=== PATIENT | female | born 1960 | race Caucasian/White ===

== ENCOUNTER 2016-08-17 22:10 | Inpatient (IN) | payer SELFPAY ==
[~2016-08-17] VITALS: Ht 160 cm; Wt 95.0 kg
[2016-08-17 22:55] LABS: BASOPHILS 0.4 % (0.0-2.0); EOSINOPHILS 1.9 % (0-7); HEMATOCRIT 29.9 % (36.0-48.0); IMMATURE GRANULOCYTES 4.1 % (0-5); LYMPHOCYTES 11.3 % (15-50); MCH 34.1 pg (26.0-34.0); MCHC 33.4 g/dL (31.0-37.0); MEAN PLATELET VOLUME 10.3 fL (7.4-10.4); NEUTROPHILS 67.3 % (40-80); PLATELET COUNT 317 10x3/uL (130-400); RBC 2.93 10x6/uL (4.00-5.40); RDW 16.2 % (11.5-14.5); WBC 13.7 10x3/uL (4.8-10.8)
[2016-08-17 23:30] LABS: ALBUMIN 2.2 g/dL (3.4-5.0); ALT (SGPT) 58 U/L (10-68); AMYLASE - SERUM 49 U/L (25-115); CALC OSMOLALITY 258 mosm/kg (275-300); CALCIUM 8.6 mg/dL (8.5-10.1); CARBON DIOXIDE 28.4 mmol/L (21.0-32.0); CHLORIDE - SERUM 87 mmol/L (98-107); CREATINE KINASE 21 UL (21-215); GLUCOSE 91 mg/dL (74-106); LIPASE 155 U/L (73-393); SODIUM 129 mmol/L (136-145); UREA NITROGEN 12 mg/dL (7-18); eGFR NON AFRICAN AMERICAN 60 mL/min (90-120)
[2016-08-17 23:33] LABS: ALKALINE PHOSPHATASE 411 U/L (46-116); POTASSIUM - SERUM 2.7 mmol/L (3.5-5.1); PROTEIN - SERUM 6.6 g/dL (6.4-8.2); TROPONIN-I < 0.017 ng/mL (0.000-0.060)
[2016-08-18 00:18] LABS: APPEARANCE TURBID (CLEAR); COLOR AMBER (YELLOW); GLUCOSE NEGATIVE (NEGATIVE); KETONE NEGATIVE (NEGATIVE); LEUKOCYTE ESTERASE 1+ (NEGATIVE); NITRITE NEGATIVE (NEGATIVE); PROTEIN 1+ mg/dL (NEGATIVE); SPECIFIC GRAVITY 1.015 (1.005-1.020)
[2016-08-18 00:24] LABS: BACTERIA MANY /hpf (NONE SEEN); HYALINE CAST OCC /lpf (NONE SEEN); MUCUS <1+ /lpf (NONE SEEN); WHITE CELLS - URINE >50 /hpf (0-5)
[2016-08-18 00:25] LABS: AMORPHOUS SEDIMENT <1+ /lpf (NONE SEEN)
[2016-08-18 00:26] LABS: BILIRUBIN 3+ (NEGATIVE)
[2016-08-18 01:55] LABS: BILIRUBIN - DIRECT 35.48 mg/dL (0.00-0.30)
[2016-08-18 03:00] LABS: BILIRUBIN - INDIRECT 8.82 mg/dL (0.00-1.00)
[2016-08-18 06:28] VITALS: BP 107/58
--- NOTE | 2016-08-18 06:32 | NUR ---
received from er, iv-rac, bed is low, srx2, family at bed side,
[2016-08-18 07:03] VITALS: BP 107/58; BMI 28.5
[2016-08-18 08:00] VITALS: BP 96/52
--- NOTE | 2016-08-18 08:30 | NUR ---
LAYING IN BED WITH EYES CLOSED. CALL LIGHT WITHIN REACH AND BED IN LOW POSITON.
--- NOTE | 2016-08-18 10:30 | NUR ---
PATIENT DOWN TO US FOR PELVIC AND TRANSVAGINAL ULTRASOUND. FAMILY AT BEDSIDE.
[2016-08-18 11:46] VITALS: BP 103/63
--- NOTE | 2016-08-18 14:20 | NUR ---
MEDS ADMINISTERED WITHOUT DIFFICULTY PER ORDERS.
[2016-08-18 16:00] VITALS: BP 103/61
--- NOTE | 2016-08-18 17:00 | NUR ---
MED ADMINISTERED WITHOUT DIFFICULTY PER ORDERS. INFORMED PATIENT WILL NOT BE ABLE TO EAT OR DRINK AFTER MIDNIGHT DUE TO SCHEDULED US OF ABDOMEN.
[2016-08-18 20:00] VITALS: BP 109/61
--- NOTE | 2016-08-18 20:20 | NUR ---
RESUMED CARE OF PT, EV-GIT-SA-125, WILL BE NPO AFTER MIDNIGHT, FAMILY AT BEDSIDE, WILL CONTINUE TO MONITOR
[2016-08-19] VITALS: BP 109/61
--- NOTE | 2016-08-19 02:18 | NUR ---
LYING IN BED, CALL LIGHT IN REACH. WILL CONTINUE WITH PLAN OF CARE.
[2016-08-19 04:00] VITALS: BP 103/56
[2016-08-19 05:39] LABS: BASOPHILS 0.4 % (0.0-2.0); EOSINOPHILS 3.6 % (0-7); HEMATOCRIT 25.1 % (36.0-48.0); HEMOGLOBIN 8.3 g/dL (12-16); IMMATURE GRANULOCYTES 6.3 % (0-5); MCH 33.9 pg (26.0-34.0); MCHC 33.1 g/dL (31.0-37.0); MCV 102.4 fL (80.0-100.0); MEAN PLATELET VOLUME 10.2 fL (7.4-10.4); MONOCYTES 8.2 % (2-11); NEUTROPHILS 73.5 % (40-80); PLATELET COUNT 319 10x3/uL (130-400); RBC 2.45 10x6/uL (4.00-5.40); RDW 16.8 % (11.5-14.5)
[2016-08-19 05:46] LABS: WBC 9.1 10x3/uL (4.8-10.8)
[2016-08-19 05:51] LABS: INR 1.05 (0.85-1.17); PROTIME 13.5 SECONDS (11.6-15.0)
[2016-08-19 06:29] LABS: ALBUMIN 1.7 g/dL (3.4-5.0); CALCIUM 8.2 mg/dL (8.5-10.1); CHOL - HDL RATIO 24.4 ratio (2.3-4.1); LDL-HDL RATIO 10.4 ratio (1.5-3.5); PRE-ALBUMIN 10.1 mg/dL (18.0-35.7)
[2016-08-19 06:40] LABS: ANION GAP 10.5 mmol/L (8-16); BILIRUBIN - TOTAL 36.4 mg/dL (0.2-1.3); CREATININE - SERUM 1.3 mg/dL (0.6-1.3); PROTEIN - SERUM 5.2 g/dL (6.4-8.2)
[2016-08-19 06:41] LABS: POTASSIUM - SERUM 2.5 mmol/L (3.5-5.1)
--- NOTE | 2016-08-19 07:39 | NUR ---
PT IS RESTING IN BED WITH EYES OPEN. ALERT AND ORIENTED X 3. DENIES ANY DISCOMFORT AT THIS TIME. ULTRASOUND JUST LEAVING ROOM. IV INFUSING TO RIGHT AC. NO REDNESS OR EDEMA NOTED AT THE INSERTION SITE. SR'S ARE UP X 2 IN BED. CALL LIGHT AND BEDSIDE TABLE ARE WITHIN EASY REACH.
[2016-08-19 09:30] VITALS: BP 117/65
--- NOTE | 2016-08-19 09:50 | NUR ---
RESTS IN BED. FAMILY MEMBER AT BS. CALL LIGHT IN REACH. WILL CONT. PLAN OF CARE.
[2016-08-19 11:07] VITALS: Ht 160 cm; Wt 95.0 kg
--- NOTE | 2016-08-19 11:55 | NUR ---
PT IS RESTING IN BED WITH EYES OPEN. NO NEEDS VOICED.
[2016-08-19 12:00] VITALS: BP 106/64
--- NOTE | 2016-08-19 14:31 | NUR ---
PATIENT STATES SHE IS INTERESTED IN GETTING HELP FOR HER ALCOHOL/DRUG ABUSE. PATIENT IS NOT EMPLOYED AND DOES NOT HAVE ANY INSURANCE. SHE STATES SHE HAS GONE TO AA IN THE PAST BUT STATES SHE DOES NOT HAVE A SPONSOR. PATIENT WAS GIVEN LIST OF ALCOHOL/DRUG REHAB FACILITIES AND TOLD TO CALL [facility] FOR A PHONE INTERVIEW AND SEE IF THEY CAN ASSIST HER SINCE SHE DOES NOT HAVE INSURACE. PATIENT STATES UNDERSTANDING THAT SHE WILL NEED TO MAKE CALL FOR HER TO BE CONSIDERED.
--- NOTE | 2016-08-19 14:46 | NUR ---
PT IS RESTING QUIETLY IN BED WITH EYES CLOSED. NO DISTRESS NOTED.
--- NOTE | 2016-08-19 15:40 | NUR ---
PATIENT IS INTERESTED IN ALCOHOL REHAB. SHE IS UNEMPLOYED AND DOES NOT HAVE INSURANCE. PATIENT WAS GIVEN INFORMATION AND RESOURCES FOR ALCOHOL REHAB. PATIENT UNDERSTANDS THAT SHE WILL NEED TO MAKE THE CALL TO [facility] TO BE CONSIDERED. CM TO FOLLOW.
--- NOTE | 2016-08-19 17:36 | NUR ---
PT IS FEEDING SELF SUPPER IN BED. VERY HAPPY, EVEN FOR A CL DIET.
[2016-08-19 21:18] VITALS: BP 154/87
--- NOTE | 2016-08-20 00:16 | NUR ---
ASSESSED AT THE BEGINNING OF THE SHIFT. PT IS ALERT AND ORIENTED, ABLE TO VERBALIZE NEEDS. HER IS STAYING WITH HER AND IS ALSO ASSISTING HER UP TO THE BEDSIDE COMMODE. WE ARE GIVING HER K+ RIDERS FOR A LOW POTASSIUM AND AT THIS TIME SHE IS ON #5. SHE RECEIVED ATIVAN REQUESTED FOR SLEEP AND IS TRYING TO REST AT THIS TIME. THE BED IS LOW, RAILS UP X'S 2 WITH THE CALL LIGHT AT HAND.
[2016-08-20 00:23] VITALS: BP 118/59
[2016-08-20 04:25] VITALS: BP 99/52
[2016-08-20 07:00] VITALS: BP 98/60
--- NOTE | 2016-08-20 07:21 | NUR ---
0710- AM ROUNDS. PT HAS A RIGHT AC IV WITH NS AT 125CC/HR. PT IS SLEEPING WITH BREATHS EVEN AND NONLABORED ON ROOM AIR. WILL CONTINUE TO MONITOR.
[2016-08-20 08:16] LABS: ALPHA FETOPROTEIN -(TUMOR MRK) 4.7 ng/mL (0.0-8.3); CEA 5.3 ng/mL (0.0-4.7)
[2016-08-20 10:13] LABS: HEPATITIS C ANTIBODY <0.1 (0.0-0.9)
[2016-08-20 10:27] LABS: BASOPHILS 0.5 % (0.0-2.0); EOSINOPHILS 1.4 % (0-7); HEMATOCRIT 24.5 % (36.0-48.0); HEMOGLOBIN 8.3 g/dL (12-16); IMMATURE GRANULOCYTES 4.2 % (0-5); LYMPHOCYTES 7.3 % (15-50); MCH 35.5 pg (26.0-34.0); MCHC 33.9 g/dL (31.0-37.0); MEAN PLATELET VOLUME 10.6 fL (7.4-10.4); MONOCYTES 5.1 % (2-11); NEUTROPHILS 81.5 % (40-80); PLATELET COUNT 320 10x3/uL (130-400); RBC 2.34 10x6/uL (4.00-5.40); RDW 17.6 % (11.5-14.5)
[2016-08-20 10:28] LABS: MCV 104.7 fL (80.0-100.0); WBC 12.3 10x3/uL (4.8-10.8)
[2016-08-20 11:43] LABS: ALBUMIN 1.6 g/dL (3.4-5.0); CALCIUM 7.5 mg/dL (8.5-10.1); CARBON DIOXIDE 20.5 mmol/L (21.0-32.0); CREATININE - SERUM 1.4 mg/dL (0.6-1.3); INR 1.1 (0.85-1.17); MAGNESIUM - SERUM 1.5 mg/dL (1.8-2.4); PHOSPHOROUS 2.4 mg/dL (2.5-4.9); PROTIME 14.1 SECONDS (11.6-15.0)
[2016-08-20 11:47] LABS: ANION GAP 15.6 mmol/L (8-16); BILIRUBIN - TOTAL 34.96 mg/dL (0.2-1.3); POTASSIUM - SERUM 3.1 mmol/L (3.5-5.1); PROTEIN - SERUM 4.8 g/dL (6.4-8.2)
[2016-08-20 12:00] VITALS: BP 91/42
[2016-08-20 16:00] VITALS: BP 110/61
[2016-08-20 20:47] VITALS: BP 112/63
--- NOTE | 2016-08-20 21:11 | NUR ---
PT RECEIVED IN BED WITH EYES CLOSED AND CHEST RISING. NO SIGN/SYMPTOMS OF DISTRESS NOTED. EASILY AROUSED TO VERBAL STIMULI. RIGHT AC IV PATENT. RECEIVED MEDICATIONS PER MAR WITHOUT DIFFICULTY. PHOSPHO GIVEN. CALL LIGHT IN REACH.
[2016-08-21 00:24] VITALS: BP 118/64
[2016-08-21 04:39] VITALS: BP 122/68
--- NOTE | 2016-08-21 05:41 | NUR ---
PT IN BED WITH EYES CLOSED AND CHEST RISING. NO SIGN/SYMPTOMS OF DISTRESS NOTED. EASILY AROUSED TO VERBAL STIMULI. CALL LIGHT IN REACH.
[2016-08-21 05:52] LABS: BASOPHILS 0.6 % (0.0-2.0); EOSINOPHILS 2.7 % (0-7); HEMATOCRIT 24.2 % (36.0-48.0); HEMOGLOBIN 7.8 g/dL (12-16); IMMATURE GRANULOCYTES 4.6 % (0-5); MCH 33.9 pg (26.0-34.0); MCHC 32.2 g/dL (31.0-37.0); MCV 105.2 fL (80.0-100.0); MEAN PLATELET VOLUME 10.5 fL (7.4-10.4); MONOCYTES 4.7 % (2-11); NEUTROPHILS 81.4 % (40-80); PLATELET COUNT 368 10x3/uL (130-400); RDW 17.9 % (11.5-14.5); WBC 12.4 10x3/uL (4.8-10.8)
[2016-08-21 06:02] LABS: INR 1.13 (0.85-1.17); PROTIME 14.4 SECONDS (11.6-15.0)
[2016-08-21 06:23] LABS: ALBUMIN 1.5 g/dL (3.4-5.0); ANION GAP 15.5 mmol/L (8-16); CALCIUM 7.7 mg/dL (8.5-10.1); CARBON DIOXIDE 20.3 mmol/L (21.0-32.0); CREATININE - SERUM 1.4 mg/dL (0.6-1.3); MAGNESIUM - SERUM 1.4 mg/dL (1.8-2.4); PHOSPHOROUS 2.6 mg/dL (2.5-4.9); POTASSIUM - SERUM 3.8 mmol/L (3.5-5.1)
[2016-08-21 06:34] LABS: BILIRUBIN - TOTAL 31.61 mg/dL (0.2-1.3)
--- NOTE | 2016-08-21 07:29 | NUR ---
AM ROUNDS- PT APPEARS TO BE SLEEPING WITH RESPIRATIONS EQUAL AND NONLABORED.
[2016-08-21 13:01] VITALS: BP 130/74
--- NOTE | 2016-08-21 15:06 | NUR ---
FIRST OF TWO BLOOD TRASFUSSIONS STARTED. INFUSSING AT 125CC/HR TO RIGHT AC. S/S POSSIBLE REACTION EXPLAINED TO PT SHE HAS NEVER RECIEVED BLOOD BEFORE.
[2016-08-21 16:39] VITALS: BP 141/83
--- NOTE | 2016-08-21 17:27 | NUR ---
FIRST UNIT OF BLOOD TRANSFUSSED WITHOUT ANY NOTED COMPLICATIONS. LASIX WILL BE GIVEN IN 1 HR WHEN VITAL SIGNS ARE CHECKED POST TRANSFUSSION.
--- NOTE | 2016-08-21 18:58 | NUR ---
2ND UNTIT OF BLOOD STARTED. TRANFUSION AT 125 IN RIGHT AC.
[2016-08-21 20:00] VITALS: BP 139/79
--- NOTE | 2016-08-21 20:03 | NUR ---
PM ROUNDS- PT CURRENTLY IN THE BED RECIEVING 2ND UNIT OF BLOOD. VITALS ARE STABLE. WILL CONTINUE TO MONITOR.
--- NOTE | 2016-08-22 00:16 | NUR ---
REMIND PT SHE WAS NOW NPO FOR CT ABDOMEN/PELVIS WITH CONTRAST
--- NOTE | 2016-08-22 01:04 | NUR ---
PT SLEEPING, BED IS LOW, SRX2, CALL LIGHT IN REACH, WILL CONTINUE TO MONITOR
[2016-08-22 04:00] VITALS: BP 139/73
[2016-08-22 05:44] LABS: BASOPHILS 0.5 % (0.0-2.0); EOSINOPHILS 2.7 % (0-7); LYMPHOCYTES 7.2 % (15-50); MCH 32.9 pg (26.0-34.0); MCHC 33.3 g/dL (31.0-37.0); MEAN PLATELET VOLUME 10.6 fL (7.4-10.4); MONOCYTES 4.2 % (2-11); NEUTROPHILS 81.4 % (40-80); PLATELET COUNT 305 10x3/uL (130-400); WBC 13.2 10x3/uL (4.8-10.8)
[2016-08-22 05:53] LABS: INR 1.05 (0.85-1.17); PROTIME 13.5 SECONDS (11.6-15.0)
[2016-08-22 05:57] LABS: MCV 98.7 fL (80.0-100.0); RBC 3.04 10x6/uL (4.00-5.40)
[2016-08-22 06:12] LABS: ALBUMIN 1.5 g/dL (3.4-5.0); ANION GAP 15.1 mmol/L (8-16); CALCIUM 8.3 mg/dL (8.5-10.1); CARBON DIOXIDE 22.3 mmol/L (21.0-32.0); CREATININE - SERUM 1.4 mg/dL (0.6-1.3); MAGNESIUM - SERUM 1.4 mg/dL (1.8-2.4); PHOSPHOROUS 3.2 mg/dL (2.5-4.9); POTASSIUM - SERUM 3.4 mmol/L (3.5-5.1)
[2016-08-22 06:13] LABS: BILIRUBIN - TOTAL 32.69 mg/dL (0.2-1.3); PROTEIN - SERUM 5.1 g/dL (6.4-8.2)
--- NOTE | 2016-08-22 07:33 | NUR ---
RECEIVED REPORT. WILL CONTINUE PLAN OF CARE. NO OTHER NEEDS AT THIS TIME. WILL CONTNUE TO ABDOUL.
[2016-08-22 08:15] VITALS: BP 130/74
[2016-08-22 12:11] LABS: ANA REFLEX - DIRECT Negative (Negative)
[2016-08-22 12:24] VITALS: BP 129/73
--- NOTE | 2016-08-22 13:45 | NUR ---
PT IS ALERT. ASSESSMENT DONE PER FLOWSHEET. NO OTHER NEEDS AT THIS TIME. WILL CONTINUE TO MONITOR.
[2016-08-22 16:05] VITALS: BP 111/68
--- NOTE | 2016-08-22 19:15 | NUR ---
RECEIVED REPORT, IV-RAC-NS @125, ASKING FOR ATIVAN, BED IS LOW, SRX2, CALL LIGHT IN REACH, WILL CONTINUE TO MONITOR
--- NOTE | 2016-08-22 19:35 | NUR ---
GAVE ATIVAN PER ORDER, WILL MONITOR
[2016-08-22 20:00] VITALS: BP 129/75
[2016-08-23] VITALS: BP 123/59
--- NOTE | 2016-08-23 00:53 | NUR ---
AUTOMOBILES SALESPERSON AT BEDSIDE, NEEDS ADDRESSED AT THIS TIME. CALL LIGHT IN REACH. WILL CONT TO MONITOR.
[2016-08-23 04:00] VITALS: BP 135/58
[2016-08-23 05:02] LABS: BASOPHILS 0.3 % (0.0-2.0); EOSINOPHILS 2.5 % (0-7); HEMATOCRIT 29.4 % (36.0-48.0); IMMATURE GRANULOCYTES 2.7 % (0-5); LYMPHOCYTES 6.7 % (15-50); MCH 33.3 pg (26.0-34.0); MEAN PLATELET VOLUME 10.4 fL (7.4-10.4); MONOCYTES 4.3 % (2-11); NEUTROPHILS 83.5 % (40-80); PLATELET COUNT 244 10x3/uL (130-400); RDW 21.6 % (11.5-14.5); WBC 11.4 10x3/uL (4.8-10.8)
[2016-08-23 05:11] LABS: INR 1.11 (0.85-1.17); PROTIME 14.2 SECONDS (11.6-15.0)
--- NOTE | 2016-08-23 05:45 | NUR ---
PT IS ALERT. NO SS OF DISTRESS AT THIS TIME. WILL CONTINUE TO MONITOR. NO OTHER NEEDS
[2016-08-23 05:58] LABS: ALBUMIN 1.5 g/dL (3.4-5.0); ANION GAP 14.9 mmol/L (8-16); CALCIUM 8.1 mg/dL (8.5-10.1); CARBON DIOXIDE 20.2 mmol/L (21.0-32.0); CREATININE - SERUM 1.4 mg/dL (0.6-1.3); POTASSIUM - SERUM 3.1 mmol/L (3.5-5.1)
[2016-08-23 06:00] LABS: BILIRUBIN - TOTAL 32.8 mg/dL (0.2-1.3); PROTEIN - SERUM 5.1 g/dL (6.4-8.2)
--- NOTE | 2016-08-23 06:57 | NUR ---
PT IS ALERT. ASSESSMENT DONE PER FLOWSHEET. NO OTHER NEEDS AT THIS TIME. WILL CONTINUE TO MONITOR.
[2016-08-23 07:54] VITALS: BP 120/74
[2016-08-23 11:38] VITALS: BP 132/76
[2016-08-23 13:17] LABS: MITOCHONDRIAL ANTIBODY 6.7 Units (0.0-20.0)
[2016-08-23 16:18] VITALS: BP 142/84
--- NOTE | 2016-08-23 19:15 | NUR ---
PT RECEIVED LYING IN BED RESTING QUIETLY AT THIS TIME. AAOX3. RATES PAIN 7/10 AT THIS TIME. REQUESTS PAIN MEDICATION. DENIES ANY OTHER NEEDS. BED LOW. PHONE AND CALL LIGHT IN REACH. SRX2.
[2016-08-23 20:00] VITALS: BP 142/81
--- NOTE | 2016-08-23 21:05 | NUR ---
PM MEDS GIVEN AT THIS TIME. PT REQUESTS ATIVAN AT THIS TIME TO HELP HER FALL ASLEEP. DENIES OTHER NEEDS. BED LOW. PHONE AND CALL LIGHT IN REACH. SRX2.
--- NOTE | 2016-08-23 22:53 | NUR ---
PT REQUESTS ATIVAN AT THIS TIME. ATIVAN ADMINISTERED IVP PER ORDERS. PT DENIES OTHER NEEDS. BED LOW. PHONE AND CALL LIGHT IN REACH. SRX2.
[2016-08-24] VITALS: BP 110/63
--- NOTE | 2016-08-24 00:29 | NUR ---
PT RESTING QUIETLY AT THIS TIME WITH EYES CLOSED. RESPIRATIONS EVEN, NON-LABORED. NO ACUTE DISTRESS NOTED AT THIS TIME. BED LOW. PHONE AND CALL LIGHT IN REACH. SRX2.
--- NOTE | 2016-08-24 02:03 | NUR ---
PT RESTING QUIETLY AT THIS TIME WITH EYES CLOSED. AROUSED EASILY. FLAGYL IVPB INITIATED AT THIS TIME. PT BACK RESTING QUIETLY WITH EYES CLOSED. RESPIRATIONS EVEN, NON-LABORED. NO ACUTE DISTRESS NOTED AT THIS TIME. BED LOW. PHONE AND CALL LIGHT IN REACH. SRX2.
[2016-08-24 04:00] VITALS: BP 112/62
--- NOTE | 2016-08-24 04:20 | NUR ---
PT RESTING QUIETLY AT THIS TIME. AROUSED EASILY. RETAPED IV TUBING AT THIS TIME. PT DENIES OTHER NEEDS. BED LOW. PHONE AND CALL LIGHT IN REACH. SRX2.
[2016-08-24 04:42] LABS: BASOPHILS 0.4 % (0.0-2.0); EOSINOPHILS 2.3 % (0-7); HEMATOCRIT 27.2 % (36.0-48.0); HEMOGLOBIN 9.2 g/dL (12-16); IMMATURE GRANULOCYTES 2.6 % (0-5); LYMPHOCYTES 5.9 % (15-50); MCH 32.9 pg (26.0-34.0); MCHC 33.8 g/dL (31.0-37.0); MCV 97.1 fL (80.0-100.0); MEAN PLATELET VOLUME 10.8 fL (7.4-10.4); MONOCYTES 4.8 % (2-11); WBC 9.7 10x3/uL (4.8-10.8)
[2016-08-24 05:03] LABS: PLATELET COUNT 188 10x3/uL (130-400)
[2016-08-24 06:06] LABS: ALBUMIN 1.3 g/dL (3.4-5.0); CALCIUM 7.9 mg/dL (8.5-10.1); CREATININE - SERUM 1.3 mg/dL (0.6-1.3)
[2016-08-24 06:09] LABS: BILIRUBIN - TOTAL 29.2 mg/dL (0.2-1.3); PROTEIN - SERUM 4.5 g/dL (6.4-8.2)
[2016-08-24 08:00] VITALS: BP 112/64
--- NOTE | 2016-08-24 11:01 | NUR ---
PT IS ALERT. ASSESSMENT DONE PER FLOWSHEET. NO OTHER NEEDS AT THIS TIME. WILL CONTINUE TO MONITOR.
[2016-08-24 12:00] VITALS: BP 129/71
--- NOTE | 2016-08-24 13:59 | NUR ---
Nutrition follow-up: Diet: Full liquids PO intake 100% of meals at this time Labs reviewed Wt: 207# RDN following.
--- NOTE | 2016-08-24 15:32 | NUR ---
Patient Name: DESIREE CORBIN Encounter No: [id number] : 1960 Primary Insurance: UNINSURED DISCOUNT PLAN Anticipated DC Date: Planned Disposition: Home DCP follow-up note: * Is the patient Alert and Oriented? Yes 0 * How many steps to enter\exit or inside your home? NONE 0 * PCP [facility] 0 * Pharmacy [facility] 0 * Preadmission Environment Home with Family 0 * ADLs Independent 0 * Equipment None 0 * Other Equipment NO MEDICAL EQUIPMENT PROVIDER PREFERENCE 0 * List name and contact numbers for known caregivers / representatives who currently or will assist patient after discharge: AHMET CORBIN, DAUGHTER, 0 * Community resources currently utilized None 0 * Please name any agencies selected above. NONE 0 * Additional services required to return to the preadmission environment? No 0 * Can the patient safely return to the preadmission environment? Yes 0 * Has this patient been hospitalized within the prior 30 days at any hospital? No 0 CHART REVIEW COMPLETED, PT PREVIOUSLY REFERRED TO [facility] FOR SUBSTANCE ABUSE TREATMENT BY TRISTAN MANDEL. DALIA MET WITH PT IN ROOM TO DISCUSS DISCHARGE PLANNING AND NEEDS. PT REPORTS LIVING AT HOME INDEPENDENTLY WITH HER BOYFRIEND. PT HAS NO MEDICAL EQUIPMENT AND NO OUTSIDE SERVICES ASSISTING IN THE HOME. CM DISCUSSED AVAILABILITY OF HOME HEALTH, REHAB SERVICES AND MEDICAL EQUIPMENT. PT DENIES DISCHARGE NEEDS, REPORTS HER SIGNIFICANT OTHER WILL PICK HER UP FOR DISCHARGE HOME. Dung Vazquez, CASE MANAGEMENT
[2016-08-24 17:21] VITALS: BP 128/66
--- NOTE | 2016-08-24 17:43 | NUR ---
PT IS ALERT. NO SS OF DISTRESS AT THIS TIME. WILL CONTINUE TO MONITOR.
--- NOTE | 2016-08-24 19:30 | NUR ---
PT AWAKE, ALERT, ORIENTED, DENIES ANY ACUTE NEEDS AT THIS TIME. PT DID EAT 100% OF HER MEAL TRAY FOR SUPPER. IV OUT, WILL RESITE. CONTINUE TO MONITOR CLOSELY.
[2016-08-24 20:00] VITALS: BP 113/66
[2016-08-25] VITALS: BP 114/63
[2016-08-25 04:00] VITALS: BP 105/63
[2016-08-25 05:52] LABS: ANION GAP 15.6 mmol/L (8-16); CALCIUM 7.9 mg/dL (8.5-10.1); CARBON DIOXIDE 20.7 mmol/L (21.0-32.0); CREATININE - SERUM 1.4 mg/dL (0.6-1.3); MAGNESIUM - SERUM 1.1 mg/dL (1.8-2.4); POTASSIUM - SERUM 3.3 mmol/L (3.5-5.1)
--- NOTE | 2016-08-25 06:16 | NUR ---
PT AWAKE, ALERT, ORIENTED, DENIES ANY ACUTE NEEDS. CONTINUE TO MONITOR CLOSELY.
--- NOTE | 2016-08-25 06:19 | NUR ---
PER PT REQUEST, I REMOVED HER RING FROM HER MIDDLE FINGER ON HER RIGHT HAND TO THE EXCESSIVE AMOUNT OF EDEMA IN HER FINGERS. I PLACED HER RING IN HER INSIDE PURSE POCKET WITH PTS ASSISTANCE PER PT REQUEST.
--- NOTE | 2016-08-25 07:32 | NUR ---
RESTS IN BED WITH CALL LIGHT IN REACH. ODIN NEEDS AT THIS TIME. IV PATENT. WILL MONITOR.
[2016-08-25 08:13] VITALS: BP 117/88
--- NOTE | 2016-08-25 09:57 | NUR ---
LATE MEDS D/T PHARMACY NOT BRINGING UP
[2016-08-25 10:20] LABS: BASOPHILS 0.4 % (0.0-2.0); EOSINOPHILS 2.4 % (0-7); HEMATOCRIT 28.8 % (36.0-48.0); HEMOGLOBIN 9.6 g/dL (12-16); MCH 33.1 pg (26.0-34.0); MCHC 33.3 g/dL (31.0-37.0); MEAN PLATELET VOLUME 11.3 fL (7.4-10.4); MONOCYTES 4.3 % (2-11); NEUTROPHILS 85.9 % (40-80); RDW 20.8 % (11.5-14.5); WBC 11.5 10x3/uL (4.8-10.8)
[2016-08-25 10:24] LABS: MCV 99.3 fL (80.0-100.0); PLATELET COUNT 137 10x3/uL (130-400)
[2016-08-25 10:52] LABS: BASOPHILS 0.3 % (0.0-2.0); EOSINOPHILS 1.7 % (0-7); HEMATOCRIT 29.5 % (36.0-48.0); HEMOGLOBIN 9.8 g/dL (12-16); LYMPHOCYTES 3.2 % (15-50); MCH 32.7 pg (26.0-34.0); MCHC 33.2 g/dL (31.0-37.0); MCV 98.3 fL (80.0-100.0); MEAN PLATELET VOLUME 10.7 fL (7.4-10.4); MONOCYTES 3.4 % (2-11); NEUTROPHILS 89.4 % (40-80); PLATELET COUNT 114 10x3/uL (130-400); RDW 20.7 % (11.5-14.5); WBC 12.3 10x3/uL (4.8-10.8)
[2016-08-25 11:18] LABS: INR 1.1 (0.85-1.17); PROTIME 14.1 SECONDS (11.6-15.0)
[2016-08-25 11:37] LABS: ALBUMIN 1.4 g/dL (3.4-5.0); ANION GAP 15.3 mmol/L (8-16); CARBON DIOXIDE 19.9 mmol/L (21.0-32.0); CREATININE - SERUM 1.5 mg/dL (0.6-1.3); MAGNESIUM - SERUM 1.1 mg/dL (1.8-2.4); POTASSIUM - SERUM 3.2 mmol/L (3.5-5.1)
[2016-08-25 11:38] VITALS: BP 110/65
[2016-08-25 11:45] LABS: BILIRUBIN - TOTAL 31.36 mg/dL (0.2-1.3); PROTEIN - SERUM 4.9 g/dL (6.4-8.2)
[2016-08-25 15:20] VITALS: BP 115/67
[2016-08-25 20:00] VITALS: BP 105/55
--- NOTE | 2016-08-25 20:04 | NUR ---
RESUME CARE OF PT, FLAGYL COMPLETE, MARILEE PAIGE,IV-RFA, BOYFRIEND AT BEDSIDE, DENIES ANY NEEDS, BED IS LOW, SRX2, CALL LIGHT IN REACH, WILL CONTINUE TO MONITOR
[2016-08-26] VITALS: BP 105/51
[2016-08-26 04:00] VITALS: BP 101/57
--- NOTE | 2016-08-26 05:16 | NUR ---
AUTHORIZER AT BEDSIDE TO OBTAIN VITALS, CALL LIGHT IN REACH. WILL CONTINUE WITH PLAN OF CARE.
[2016-08-26 06:53] LABS: BASOPHILS 0.3 % (0.0-2.0); EOSINOPHILS 1.8 % (0-7); HEMATOCRIT 27.3 % (36.0-48.0); HEMOGLOBIN 9.1 g/dL (12-16); IMMATURE GRANULOCYTES 1.6 % (0-5); LYMPHOCYTES 4.6 % (15-50); MCH 32.6 pg (26.0-34.0); MCHC 33.3 g/dL (31.0-37.0); MCV 97.8 fL (80.0-100.0); MEAN PLATELET VOLUME 11.2 fL (7.4-10.4); MONOCYTES 3.6 % (2-11); NEUTROPHILS 88.1 % (40-80); RBC 2.79 10x6/uL (4.00-5.40); RDW 20.5 % (11.5-14.5); WBC 12.3 10x3/uL (4.8-10.8)
[2016-08-26 07:07] LABS: PLATELET COUNT 75 10x3/uL (130-400)
[2016-08-26 07:17] LABS: ALBUMIN 1.2 g/dL (3.4-5.0); ANION GAP 13.7 mmol/L (8-16); CARBON DIOXIDE 20.5 mmol/L (21.0-32.0); CREATININE - SERUM 1.5 mg/dL (0.6-1.3); POTASSIUM - SERUM 3.2 mmol/L (3.5-5.1); PROTEIN - SERUM 4.3 g/dL (6.4-8.2)
[2016-08-26 07:20] LABS: BILIRUBIN - TOTAL 27.42 mg/dL (0.2-1.3)
[2016-08-26 07:31] LABS: PLATELET ESTIMATE DECREASED
[2016-08-26 08:31] VITALS: BP 102/57
[2016-08-26 12:47] VITALS: BP 95/62
--- NOTE | 2016-08-26 14:26 | NUR ---
DR. GAMA VISITED WITH RESULTS OF LIVER BX.
--- NOTE | 2016-08-26 14:54 | EC ---
PATIENT:DESIREE CORBIN DATE OF SERVICE: 08/18/16 SEX: F MEDICAL RECORD: [id number] DATE OF : 56 LOCATION:D.M2 D.210 AGE OF PATIENT: 56 ADMISSION DATE: 08/18/16 REFERRING PHYSICIAN: INTERPRETING PHYSICIAN: ELIANE SHULTZ M.D. ECHOCARDIOGRAM REPORT ECHO CHARGES 4 ECHO COMPLETE CLINICAL DIAGNOSIS: MURMUR ECHOCARDIOGRAPHIC MEASUREMENTS (adult normal given) AC root (d.<3.7cm) 3.2 LV Septum d (<1.2 cm> 1.2 Valve Excursion 1.6 LV Septum (systole) 1.6 Left Atria (s.<4.0cm> 3.9 LVPW d(<1.2cm) 1.3 RV (d.<2.3cm) 3.0 LVPW (sytole) 1.7 LV diastole(<5.6CM) 5.4 MV E-F(>70mm/sec) LV systole 3.3 LVOT Diameter 1.9 MV exc.(>10mm) 1.3 Est.ejection fraction (50-75%) Pericardial Effusion N DOPPLER: LVIT A 96.0 E 83.0 LA RVSP 21 LVOT 115 AOP1/2T Asc. Ao 152 RVOT 116 RA PA 142 AV Gradient Peak 9.20 AV Mean 4.91 AV Area 2.2 MV Gradient Peak 5.44 MV Mean 2.17 MV Area COMMENTS: Ice Cream Truck Driver: Zak AMAYA Mushroom Press Operator:2 Dr. Shultz TAPE# PACS DATE OF SERVICE: 08/19/2016 REFERRING PHYSICIAN: Zeferino Fatima MD. INDICATION: Murmur. DESCRIPTION: Left ventricle is normal size and function. No wall motion abnormalities are seen. Its ejection fraction is 60%. Mitral valve is structurally normal. There is mild regurgitation seen. Left atrium is normal in size. The aortic valve is trileaflet. There is no stenosis or regurgitation ECHOCARDIOGRAM REPORT [id number] DESIREE CORBIN seen. The ventricles mildly dilated. Tricuspid valve is normal. There is mild regurgitation seen. Right atrium is normal size with hyperperfusion noted. IMPRESSION: 1. Normal left ventricular size and function, ejection fraction 60%. 2. Mild mitral regurgitation. 3. Mild tricuspid regurgitation. TRANSINT:[id number] Voice Confirmation ID: [id number] DOCUMENT ID: [id number] ELIANE SHULTZ M.D. at 1454 CC: [id number] DICTATION DATE: 08/19/16 1317 CONSTRUCTION DRIVER: 08/19/16 1532 ADM IN [place] [id number] [place] [address]
[2016-08-26 18:07] VITALS: BP 115/65
[2016-08-26 19:00] VITALS: BP 147/76
--- NOTE | 2016-08-26 19:45 | NUR ---
RECEIVED REPORT FROM [facility] NURSE, DENIES ANY NEES, CALL LIGHT IN REACH, BED IS LOW, WILL CONTINUE TO MONITOR
[2016-08-27] VITALS: BP 112/64
--- NOTE | 2016-08-27 01:24 | NUR ---
SLEEPING, CALL LIGHT IN REACH
[2016-08-27 05:07] VITALS: BP 107/68
[2016-08-27 05:30] LABS: BASOPHILS 0.3 % (0.0-2.0); EOSINOPHILS 1.8 % (0-7); HEMATOCRIT 30.4 % (36.0-48.0); HEMOGLOBIN 10.3 g/dL (12-16); IMMATURE GRANULOCYTES 1.6 % (0-5); LYMPHOCYTES 5.6 % (15-50); MCH 33.4 pg (26.0-34.0); MCHC 33.9 g/dL (31.0-37.0); MCV 98.7 fL (80.0-100.0); MEAN PLATELET VOLUME 12.2 fL (7.4-10.4); MONOCYTES 3.4 % (2-11); NEUTROPHILS 87.3 % (40-80); PLATELET COUNT 64 10x3/uL (130-400); RBC 3.08 10x6/uL (4.00-5.40); RDW 20.4 % (11.5-14.5); WBC 13.6 10x3/uL (4.8-10.8)
[2016-08-27 05:53] LABS: ALBUMIN 1.3 g/dL (3.4-5.0); ANION GAP 13.5 mmol/L (8-16); BILIRUBIN - TOTAL 28.46 mg/dL (0.2-1.3); CALCIUM 8.2 mg/dL (8.5-10.1); CARBON DIOXIDE 19.1 mmol/L (21.0-32.0); CREATININE - SERUM 1.7 mg/dL (0.6-1.3); POTASSIUM - SERUM 3.6 mmol/L (3.5-5.1); PROTEIN - SERUM 4.7 g/dL (6.4-8.2)
--- NOTE | 2016-08-27 07:46 | NUR ---
PT IN BED WATCHING TV. IV TO RIGHT F/A NS @ 50CC/HR. DENIES DISTRESS AT THIS TIME. PT IS YELLOWISH IN SKIN COLOR. SR UP X 2. C/L IN REACH. WILL CONT TO MONITOR.
[2016-08-27 08:08] VITALS: BP 115/62
--- NOTE | 2016-08-27 10:22 | NUR ---
RESTS WITH EYES CLOSED. IV PATENT. CALL LIGHT IN REACH. WILL CONT. PLAN OF CARE.
[2016-08-27 11:57] VITALS: BP 112/66
[2016-08-27 16:07] VITALS: BP 110/62
--- NOTE | 2016-08-27 20:54 | NUR ---
HS MEDS GIVEN, ATIVAN 1 MG GIVEN TO LEFT ARM IV AT PT REQUEST FOR S/S AGITATION. WILL CONT TO MONITOR.
[2016-08-27 21:16] VITALS: BP 136/71
--- NOTE | 2016-08-27 23:13 | NUR ---
RESTING WITH EYES CLOSED, RESPERATIONS EVEN, NO S/S DISTRESS NOTED.
[2016-08-28 00:30] VITALS: BP 115/57
[2016-08-28 04:30] VITALS: BP 130/61
[2016-08-28 05:06] LABS: BASOPHILS 0.3 % (0.0-2.0); EOSINOPHILS 1.7 % (0-7); HEMATOCRIT 27.3 % (36.0-48.0); HEMOGLOBIN 9.1 g/dL (12-16); IMMATURE GRANULOCYTES 1.4 % (0-5); LYMPHOCYTES 4.6 % (15-50); MCHC 33.3 g/dL (31.0-37.0); MCV 98.9 fL (80.0-100.0); MEAN PLATELET VOLUME 12.6 fL (7.4-10.4); MONOCYTES 5.3 % (2-11); NEUTROPHILS 86.7 % (40-80); PLATELET COUNT 63 10x3/uL (130-400); RBC 2.76 10x6/uL (4.00-5.40); RDW 20.4 % (11.5-14.5); WBC 14.5 10x3/uL (4.8-10.8)
[2016-08-28 05:38] LABS: ALBUMIN 1.3 g/dL (3.4-5.0); ANION GAP 14.3 mmol/L (8-16); CARBON DIOXIDE 19.1 mmol/L (21.0-32.0); POTASSIUM - SERUM 3.4 mmol/L (3.5-5.1); PROTEIN - SERUM 4.5 g/dL (6.4-8.2)
[2016-08-28 05:40] LABS: BILIRUBIN - TOTAL 27.51 mg/dL (0.2-1.3)
--- NOTE | 2016-08-28 06:23 | NUR ---
POTASSIUM 3.4, COVERED PER ELECTROLYTE PROTOCOL. 40 MEQ K+ GIVEN PO WITH ORANGE JUICE, WILL RECHECK IN 4 HOURS.
[2016-08-28 07:54] VITALS: BP 120/66
[2016-08-28 12:22] VITALS: BP 123/63
[2016-08-28 15:45] VITALS: BP 116/60
[2016-08-28 20:00] VITALS: BP 117/63
[2016-08-28 20:19] LABS: CREATININE - URINE 61.4 mg/dL (30-125); PROTEIN - URINE 51.4 mg/dL (0.0-11.9)
[2016-08-28 20:20] LABS: APPEARANCE CLOUDY (CLEAR); BACTERIA NONE SEEN /hpf (NONE SEEN); BILIRUBIN 2+ (NEGATIVE); COLOR BROWN (YELLOW); EPITHELIAL CELLS 0-5 /hpf (0-5); GLUCOSE NEGATIVE (NEGATIVE); KETONE NEGATIVE (NEGATIVE); LEUKOCYTE ESTERASE 1+ (NEGATIVE); NITRITE NEGATIVE (NEGATIVE); PROTEIN NEGATIVE (NEGATIVE); UROBILINOGEN NORMAL (NORMAL)
[2016-08-28 20:21] LABS: AMORPHOUS SEDIMENT <1+ /lpf (NONE SEEN)
[2016-08-29] VITALS: BP 97/54
--- NOTE | 2016-08-29 02:57 | NUR ---
NURSE ROUNDS 22:00 - PT LYING IN BED, EYES CLOSED, RESPIRATIONS EVEN AND UNLABORED. PT EASILY ROUSABLE TO VERBAL STIMULI. PT IS REQUESTING HER PRN LORAZEPAM, HOWEVER IT FELL OFF THE MAR. IT TIMED OUT. SPOKE WITH DR. OLIVO IN THE ER, UNDERWEAR HEMMER FOR [facility], WHO DID AUTHORIZE THE RESTART OF PRN LORAZEPAM, ORIGINALLY ORDERED. PT DENIED ANY OTHER NEEDS. CONTINUE TO MONITOR CLOSELY. BED LOW, CALL LIGHT IN REACH, SIDE RAILS X 2, HOB 30 DEGREES.
[2016-08-29 04:57] LABS: BASOPHILS 0.3 % (0.0-2.0); EOSINOPHILS 1.7 % (0-7); HEMOGLOBIN 8.9 g/dL (12-16); LYMPHOCYTES 6.1 % (15-50); MCH 32.6 pg (26.0-34.0); MCV 98.9 fL (80.0-100.0); NEUTROPHILS 83.9 % (40-80); PLATELET COUNT 66 10x3/uL (130-400); RBC 2.73 10x6/uL (4.00-5.40); RDW 20.2 % (11.5-14.5); WBC 12.6 10x3/uL (4.8-10.8)
[2016-08-29 05:34] LABS: ALBUMIN 1.3 g/dL (3.4-5.0); ANION GAP 14.8 mmol/L (8-16); BILIRUBIN - TOTAL 28.41 mg/dL (0.2-1.3); CALCIUM 7.7 mg/dL (8.5-10.1); CARBON DIOXIDE 20.8 mmol/L (21.0-32.0); CREATININE - SERUM 2.1 mg/dL (0.6-1.3); MAGNESIUM - SERUM 1.2 mg/dL (1.8-2.4); POTASSIUM - SERUM 3.6 mmol/L (3.5-5.1); PROTEIN - SERUM 4.5 g/dL (6.4-8.2)
[2016-08-29 08:50] VITALS: BP 119/66
[2016-08-29 12:33] VITALS: BP 131/66
--- NOTE | 2016-08-29 15:42 | NUR ---
ALERT AND ORIENTED X4. RESTING IN BED. DENIES PAIN OR SOB. SINUS RHTHYM 77bpm ON TELEMETRY. LINEN CHANGE COMPLETE. EPISODES OF INCONTENCE. DENIES NEEDS AT THIS TIME. CONTINUE PLAN OF CARE. BED LOCKED AND LOW. CALL LIGHT IN REACH. TWO SIDERAILS UP. REFUSE SCDs.
[2016-08-29 16:15] VITALS: BP 119/67
--- NOTE | 2016-08-29 18:22 | NUR ---
ALERT AND ORIENTED X4. RESTING IN BED WATCHING TV. NO CHANGE. SINUS RHTHYM 75bpm ON TELEMETRY. CONTINUE PLAN OF CARE AND SAFETY PRECAUTIONS. PREPARE SHIFT CHANGE REPORT.
--- NOTE | 2016-08-29 19:34 | NUR ---
PT AWAKE, ALERT, ORIENTED, BOYFRIEND AT BEDSIDE. PT DENIES ANY ACUTE NEEDS. CONTINUE TO MONITOR CLOSELY.
[2016-08-29 20:00] VITALS: BP 122/66
--- NOTE | 2016-08-30 02:53 | NUR ---
PT LYING IN BED ON LEFT SIDE, EYES CLOSED, RESPIRATIONS EVEN AND UNLABORED. PT EASILY ROUSABLE TO VERBAL STIMULI. PT DENIES ANY ACUTE NEEDS. CONTINUE TO MONITOR CLOSELY. BED LOW, CALL LIGHT IN REACH, SIDE RAILS X 2, HOB 10 DEGREES, BEDSIDE COMMODE PRESENT.
[2016-08-30 04:00] VITALS: BP 117/60
[2016-08-30 05:45] LABS: BASOPHILS 0.5 % (0.0-2.0); EOSINOPHILS 1.5 % (0-7); HEMATOCRIT 27.1 % (36.0-48.0); HEMOGLOBIN 9.2 g/dL (12-16); IMMATURE GRANULOCYTES 2.5 % (0-5); LYMPHOCYTES 5.5 % (15-50); MCH 33.6 pg (26.0-34.0); MCHC 33.9 g/dL (31.0-37.0); MCV 98.9 fL (80.0-100.0); MEAN PLATELET VOLUME 11.6 fL (7.4-10.4); MONOCYTES 6.5 % (2-11); NEUTROPHILS 83.5 % (40-80); PLATELET COUNT 76 10x3/uL (130-400); RBC 2.74 10x6/uL (4.00-5.40); RDW 20.3 % (11.5-14.5); WBC 14.6 10x3/uL (4.8-10.8)
[2016-08-30 06:23] LABS: ALBUMIN 1.4 g/dL (3.4-5.0); ANION GAP 14.9 mmol/L (8-16); BILIRUBIN - TOTAL 28.74 mg/dL (0.2-1.3); CALCIUM 7.6 mg/dL (8.5-10.1); CARBON DIOXIDE 19.6 mmol/L (21.0-32.0); CREATININE - SERUM 2.2 mg/dL (0.6-1.3); POTASSIUM - SERUM 3.5 mmol/L (3.5-5.1); PROTEIN - SERUM 4.1 g/dL (6.4-8.2)
--- NOTE | 2016-08-30 07:40 | NUR ---
RECEIVED REPORT. ASSUMED CARE OF PATIENT. RESTING IN BED WITH EYES OPEN. NPO FOR CT OF ABD. PATIENT AWARE OF THIS PROCEDURE. COMPLAINING OF ANXIETY AND NAUSEA AT THIS TIME. CALL LIGHT WITHIN REACH. STUDENT NURSE AT BEDSIDE. NO DISTRESS.
--- NOTE | 2016-08-30 07:51 | NUR ---
MEDICATED FOR ANXIETY AND NAUSEA AT THIS TIME. NO DISTRESS. RADILOGY AT BEDSIDE AND BROUGHT ORAL CONTRAST FOR PATIENT TO CONSUME.
[2016-08-30 07:54] VITALS: BP 115/66
[2016-08-30 08:23] LABS: HAPTOGLOBIN 64 mg/dL (34-200)
--- NOTE | 2016-08-30 10:16 | NUR ---
RECEIVED PATIENT BACK FROM CT SCAN VIA BED AT THIS TIME. NO DISTRESS.
[2016-08-30 11:46] VITALS: BP 111/61
--- NOTE | 2016-08-30 12:45 | NUR ---
Nutrition follow-up: Diet advanced to now added salt PO intake ~75% average of meals Labs reviewed +BM Wt: 221# PO intake improving. Will continue to provide food choices and honor food preferences within diet restrictions. RDN following.
[2016-08-30 14:23] LABS: SPE - A/G RATIO 0.7 (0.7-1.7); SPE - ALBUMIN 1.5 g/dL (2.9-4.4); SPE - ALPHA-1 GLOBULIN 0.2 g/dL (0.0-0.4); SPE - ALPHA-2 GLOBULIN 0.5 g/dL (0.4-1.0); SPE - BETA GLOBULIN 0.6 g/dL (0.7-1.3); SPE - M-SPIKE Not Observed g/dL (Not Observed); SPE - TOTAL PROTEIN 3.8 g/dL (6.0-8.5)
--- NOTE | 2016-08-30 15:00 | NUR ---
PATIENT RESTING IN BED WITH EYES CLOSED. EASILY AROUSED. DENIES NEEDS. CALL LIGHT WIHTIN REACH. NO DISTRESS.
[2016-08-30 15:43] VITALS: BP 118/62
--- NOTE | 2016-08-30 18:00 | NUR ---
LINEN CHANGE PROVIDED. PATIENT DENIES ANY NEEDS AT THIS TIME. CALL LIGHT WITHIN REACH. NO DISTRESS.
[2016-08-30 21:58] VITALS: BP 124/68
--- NOTE | 2016-08-30 22:50 | NUR ---
NURSE ROUNDS 20:30 - PT AWAKE, ALERT, ORIENTED, REQUESTING PRN ATIVAN. PT DENIES ANY OTHER ACUTE NEEDS. WE DISCUSSED HER HEALTH HX, PT DENIES ANY ESOPHAGEAL VARICES, BUT STATES SHE HAS A FULLNESS IN HER THROAT WHEN SHE SWALLOWS AND IT SEEMS SCRATCHY AT TIMES. I DID PT TEACHING ON ESOPHAGEAL VARICES AND THE NEED FOR EMERGENT TX SHOULD THIS OCCUR. CONTINUE TO MONITOR CLOSELY.
[2016-08-31] VITALS: BP 115/60
--- NOTE | 2016-08-31 02:55 | NUR ---
@ 02:10 THIS AM, PT CALLED AND WAS FOUND TO BE SITTING IN THE FLOOR NEXT TO THE BEDSIDE COMMODE. PT WAS FOUND TO BE AWAKE, ALERT, ORIENTED, DENIES ANY ACUTE PAIN, DENIES BLEEDING, DENIES ANY INJURIES AT ALL X 4. PT STATES SHE WAS TRANSFERRING TO THE BEDSIDE COMMODE WHEN HER LEGS JUST GAVE OUT FROM UNDERNEATH HER AND SO SHE SAT DOWN. PT WAS ASSISTED X 2 BACK INTO BED. LINENS CHANGED, BED BATH GIVEN, GOWN CHANGED, BILATERAL LEGS ELEVATED AND PLACED ON PILLOW. INCIDENT REPORT FILED, REGISTERED NURSE NURSERY, DEEDEE DIAMOND, NOTIFIED.
[2016-08-31 04:47] LABS: BASOPHILS 0.4 % (0.0-2.0); EOSINOPHILS 1.6 % (0-7); HEMATOCRIT 26.8 % (36.0-48.0); HEMOGLOBIN 9.4 g/dL (12-16); IMMATURE GRANULOCYTES 3.7 % (0-5); LYMPHOCYTES 5.7 % (15-50); MCH 34.6 pg (26.0-34.0); MCHC 35.1 g/dL (31.0-37.0); MCV 98.5 fL (80.0-100.0); MEAN PLATELET VOLUME 10.6 fL (7.4-10.4); MONOCYTES 7.4 % (2-11); NEUTROPHILS 81.2 % (40-80); PLATELET COUNT 89 10x3/uL (130-400); RBC 2.72 10x6/uL (4.00-5.40); RDW 20.1 % (11.5-14.5); WBC 13.2 10x3/uL (4.8-10.8)
[2016-08-31 05:00] LABS: INR 1.15 (0.85-1.17); PROTIME 14.6 SECONDS (11.6-15.0)
[2016-08-31 05:27] LABS: ALBUMIN 1.4 g/dL (3.4-5.0); CALCIUM 7.6 mg/dL (8.5-10.1); CARBON DIOXIDE 18.3 mmol/L (21.0-32.0); CREATININE - SERUM 2.2 mg/dL (0.6-1.3); POTASSIUM - SERUM 3.3 mmol/L (3.5-5.1); PROTEIN - SERUM 4.7 g/dL (6.4-8.2)
[2016-08-31 05:28] LABS: BILIRUBIN - TOTAL 29.96 mg/dL (0.2-1.3)
[2016-08-31 06:05] VITALS: BP 105/49
--- NOTE | 2016-08-31 06:24 | NUR ---
PT AWAKE, ALERT, ORIENTED, STILL DENIES ANY INJURIES FROM EARLIER FALL. PT WAS GIVEN EP K+. CONTINUE TO MONITOR CLOSELY.
--- NOTE | 2016-08-31 07:27 | NUR ---
RECEIVED PT REPORT. NO OTHER NEEDS AT THIS TIME. WILL CONTINUE PLAN OF CARE.
[2016-08-31 07:55] VITALS: BP 115/57
--- NOTE | 2016-08-31 08:21 | NUR ---
PT IS ALERT. ASSESSMENT DONE PER FLOWSHEET. NO OTHER NEEDS WILL CONTINUE TO MONITOR.
--- NOTE | 2016-08-31 09:53 | NUR ---
pt up at bedside. weaker than her normal self she has recently become an assist.
--- NOTE | 2016-08-31 10:04 | NUR ---
complete bed change done at this time. will continue to monitor.
[2016-08-31 11:51] VITALS: BP 134/70
[2016-08-31 15:23] LABS: UPE RAND - ALPHA 1 GLOBULIN 4.1 % (()); UPE RAND - ALPHA 2 GLOBULIN 29.2 % (()); UPE RAND - BETA GLOBULIN 28.5 % (()); UPE RAND - GAMMA GLOBULIN 26.1 % (())
[2016-08-31 15:23] LABS: ADAMTS13 ACTIVITY 25 % (>66)
[2016-08-31 16:05] VITALS: BP 134/70
--- NOTE | 2016-08-31 19:25 | NUR ---
RECEIVED REPORT FROM DAY NURSE, PT VISITING WITH FRIENDS, ASKING FOR ATIVAN, BED IS LOW, SRX2, CALL LIGHT IN REACH, WILL CONTINUE TO MONITOR
[2016-08-31 22:01] VITALS: BP 121/49
--- NOTE | 2016-09-01 00:04 | NUR ---
NATURAL SCIENCES MANAGER AT BEDSIDE TO OBTAIN VITALS, CALL LIGHT IN REACH. WILL CONTINUE WITH PLAN OF CARE.
[2016-09-01 01:01] VITALS: BP 139/82
--- NOTE | 2016-09-01 03:27 | NUR ---
ASSESSMENT COMPLETE, SLEEPING, CALL LIGHT IN REACH, WILL CONTINUE TO MONITOR
[2016-09-01 04:00] VITALS: BP 140/78
[2016-09-01 05:01] LABS: BASOPHILS 0.1 % (0.0-2.0); EOSINOPHILS 0.1 % (0-7); HEMATOCRIT 30.5 % (36.0-48.0); IMMATURE GRANULOCYTES 4.9 % (0-5); LYMPHOCYTES 4.2 % (15-50); MCH 32.8 pg (26.0-34.0); MCHC 32.8 g/dL (31.0-37.0); MEAN PLATELET VOLUME 11.7 fL (7.4-10.4); MONOCYTES 3.7 % (2-11); RBC 3.05 10x6/uL (4.00-5.40); RDW 19.9 % (11.5-14.5); WBC 14.2 10x3/uL (4.8-10.8)
[2016-09-01 05:03] LABS: PLATELET COUNT 143 10x3/uL (130-400)
[2016-09-01 05:31] LABS: ALBUMIN 1.5 g/dL (3.4-5.0); CALCIUM 7.9 mg/dL (8.5-10.1); CARBON DIOXIDE 19.4 mmol/L (21.0-32.0); CREATININE - SERUM 2.2 mg/dL (0.6-1.3); PROTEIN - SERUM 5.1 g/dL (6.4-8.2)
[2016-09-01 05:50] LABS: ANION GAP 15.4 mmol/L (8-16); BILIRUBIN - TOTAL 32.7 mg/dL (0.2-1.3); POTASSIUM - SERUM 3.8 mmol/L (3.5-5.1)
--- NOTE | 2016-09-01 06:48 | NUR ---
RECEIVED PT REPORT AT 400....PT IS ALERT. NO OTHER NEEDS AT THIS TIME WILL CONTINUE TO MONITOR. WILL CONTINUE PLAN OF CARE.
--- NOTE | 2016-09-01 07:06 | NUR ---
PT IS ALERT. ASSESSMENT DONE PER FLOWSHEET. NO OTHER NEEDS AT THIS TIME. WILL CONTINUE TO MONITOR.
[2016-09-01 08:41] VITALS: BP 108/68
--- NOTE | 2016-09-01 13:17 | NUR ---
Nutrition Follow Up: Chart reviewed. Pt is eating 58% meal avg on a LUNA diet. I>O. Wt gain 4# since admit. +BM 09/01/16. Labs noted. Meds noted including Solu-Medrol, Lasix and NS @ 30 ml/hr. Pt with fair po intake at this time. Rec continue current diet. RD following.
[2016-09-01 16:13] VITALS: BP 148/84
--- NOTE | 2016-09-01 19:30 | NUR ---
PT RECEIVED SITTING UP IN BED WATCHING TELEVISION. PT ALERT AND ORIENTED X4. IV TO LEFT UPPER ARM WITH NORMAL SALINE @ 30, IV PATENT. NO REDNESS OR EDEMA NOTED TO SITE. PT DENIES PAIN OR NEEDS AT THIS TIME. CALL LIGHT AND H2O IN PT REACH. BED IN LOW POSITION. SIDE RAILS UP X2.
[2016-09-01 20:00] VITALS: BP 139/77
--- NOTE | 2016-09-02 03:30 | NUR ---
PT RESTING IN BED WITH EYES CLOSED. NO S/S OF DISTRESS NOTED. RESP EVEN AND UNLABORED. CALL LIGHT AND H2O IN PT REACH. BED IN LOW POSITION. SIDE RAILS UP X2.
[2016-09-02 04:00] VITALS: BP 130/78
[2016-09-02 05:31] LABS: BASOPHILS 0.1 % (0.0-2.0); EOSINOPHILS 0.1 % (0-7); HEMATOCRIT 29.6 % (36.0-48.0); HEMOGLOBIN 9.8 g/dL (12-16); IMMATURE GRANULOCYTES 4.5 % (0-5); LYMPHOCYTES 3.8 % (15-50); MCH 33.1 pg (26.0-34.0); MCHC 33.1 g/dL (31.0-37.0); MEAN PLATELET VOLUME 10.7 fL (7.4-10.4); MONOCYTES 4.8 % (2-11); NEUTROPHILS 86.7 % (40-80); RBC 2.96 10x6/uL (4.00-5.40); RDW 19.9 % (11.5-14.5)
[2016-09-02 05:38] LABS: PLATELET COUNT 218 10x3/uL (130-400)
[2016-09-02 06:00] LABS: ALBUMIN 1.5 g/dL (3.4-5.0); CARBON DIOXIDE 19.9 mmol/L (21.0-32.0); CREATININE - SERUM 2.1 mg/dL (0.6-1.3); POTASSIUM - SERUM 3.9 mmol/L (3.5-5.1)
[2016-09-02 06:02] LABS: PROTEIN - SERUM 4.8 g/dL (6.4-8.2)
--- NOTE | 2016-09-02 07:21 | NUR ---
PT SITTING UP IN BED WITH FAMILY MEMBER AT BEDSIDE DENIES NEEDSS WILL CONT TO MONITOR
[2016-09-02 08:00] VITALS: BP 138/66
[2016-09-02 08:51] LABS: MAGNESIUM - SERUM 1.5 mg/dL (1.8-2.4); PHOSPHOROUS 4.2 mg/dL (2.5-4.9)
--- NOTE | 2016-09-02 10:41 | NUR ---
TOOK SPECIMEN CUP INTO PT TO COLLECT STOOL SPECIMEN. SPOKE WITH PT AND DOUGH CATCHER ON IMPORTANCE TO COLLECT SPECIMEN.
[2016-09-02 11:54] VITALS: BP 149/86
[2016-09-02 15:21] VITALS: BP 130/76
--- NOTE | 2016-09-02 17:28 | NUR ---
PT SITTING UP IN BED DENIES NEEDS
--- NOTE | 2016-09-02 19:41 | NUR ---
ALERT/AWAKE WATCHING TV. DENIES PAIN OR ANY NEEDS. IV IN L FA INTACT/PATENT. ORIENTED TO CALL LIGHT FOR ANY NEEDS.
[2016-09-02 20:34] VITALS: BP 138/81
--- NOTE | 2016-09-02 21:10 | NUR ---
ADMIN SCHED MEDS AND ATIVAN 1MG IV PER REQUEST FOR C/O "RESTLESSNESS". NO OTHER NEEDS VOICED.
[2016-09-03 00:26] VITALS: BP 131/72; BP 147/96
--- NOTE | 2016-09-03 04:00 | NUR ---
BRAZING MACHINE TENDER PRESENT IN ROOM TAKING VS. DENIES ANY NEEDS OR DISCOMFORTS. VISITOR PRESENT IN ROOM.
[2016-09-03 04:19] VITALS: BP 119/68
[2016-09-03 06:13] LABS: BASOPHILS 0.1 % (0.0-2.0); EOSINOPHILS 0 % (0-7); HEMATOCRIT 29.1 % (36.0-48.0); HEMOGLOBIN 9.7 g/dL (12-16); LYMPHOCYTES 4.1 % (15-50); MCH 33.6 pg (26.0-34.0); MCHC 33.3 g/dL (31.0-37.0); MCV 100.7 fL (80.0-100.0); MEAN PLATELET VOLUME 10.2 fL (7.4-10.4); NEUTROPHILS 86.8 % (40-80); RBC 2.89 10x6/uL (4.00-5.40); RDW 20.1 % (11.5-14.5); WBC 15.5 10x3/uL (4.8-10.8)
[2016-09-03 06:15] LABS: PLATELET COUNT 289 10x3/uL (130-400)
[2016-09-03 06:48] LABS: ALBUMIN 1.5 g/dL (3.4-5.0); ANION GAP 16.5 mmol/L (8-16); CALCIUM 7.7 mg/dL (8.5-10.1); CARBON DIOXIDE 20.5 mmol/L (21.0-32.0); MAGNESIUM - SERUM 1.7 mg/dL (1.8-2.4); PHOSPHOROUS 3.8 mg/dL (2.5-4.9); PROTEIN - SERUM 4.9 g/dL (6.4-8.2)
[2016-09-03 07:06] LABS: BILIRUBIN - TOTAL 32.06 mg/dL (0.2-1.3)
--- NOTE | 2016-09-03 07:46 | NUR ---
AM ROUNDS - PT IN THE BATHROOM. MALE MEMBER, MAX, AT [facility]. WILL CONTINUE TO MONITOR.
[2016-09-03 07:58] VITALS: BP 141/69
--- NOTE | 2016-09-03 10:55 | NUR ---
WENT IN ROOM TO GIVE MEDICATION, PT ON KNEES ON FLOOR AT BEDSIDE. PT STATES SHE WAS WALKING TO CHAIR AND FELL. INFORMED YUMIKO TORIBIO, WITH RENAL. INSTRUCTED PT TO USE CALL KOHLER AND WAIT ON ASSISTANCE FOR NOW ON. KAVON, INSIDE SALES ACCOUNT REPRESENTATIVE, NOTIFIED. WILL COMPLETE C-STAR, COMPUTERS WILL NOT PULL UP PAGE RIGHT NOW. KAVON AWARE, HE WILL CALL THE IT DEPARTMENT. WILL CONTINUE TO MONITOR.
[2016-09-03 11:54] VITALS: BP 145/74
[2016-09-03 15:39] VITALS: BP 139/74
[2016-09-03] MEDS ORDERED: XIFAXAN550 MG PO (18:33)
[2016-09-03] MEDS ORDERED: STERAPRED DS 1210 MG PO (18:35)
--- NOTE | 2016-09-03 19:03 | NUR ---
LAYING IN BED, AAOX3, SKIN WARM AND DRY, VERY JAUNDICE AT THIS TIME, IV PATENT TO LEFT UPPER ARM, ABDOMIN DISTENDED, NO DISTRESSS NOTED
[2016-09-03 20:19] VITALS: BP 156/82
[2016-09-04 00:38] VITALS: BP 125/75
[2016-09-04 04:25] VITALS: BP 147/87
[2016-09-04 05:07] LABS: BASOPHILS 0.1 % (0.0-2.0); EOSINOPHILS 0 % (0-7); HEMATOCRIT 28.5 % (36.0-48.0); HEMOGLOBIN 9.3 g/dL (12-16); IMMATURE GRANULOCYTES 3.6 % (0-5); LYMPHOCYTES 4.1 % (15-50); MCH 33.3 pg (26.0-34.0); MCHC 32.6 g/dL (31.0-37.0); MCV 102.2 fL (80.0-100.0); MEAN PLATELET VOLUME 9.9 fL (7.4-10.4); MONOCYTES 3.1 % (2-11); NEUTROPHILS 89.1 % (40-80); PLATELET COUNT 308 10x3/uL (130-400); RBC 2.79 10x6/uL (4.00-5.40); RDW 20.3 % (11.5-14.5); WBC 16.5 10x3/uL (4.8-10.8)
[2016-09-04 05:43] LABS: ALBUMIN 1.6 g/dL (3.4-5.0); ANION GAP 16.7 mmol/L (8-16); CALCIUM 7.9 mg/dL (8.5-10.1); CARBON DIOXIDE 19.5 mmol/L (21.0-32.0); CREATININE - SERUM 1.9 mg/dL (0.6-1.3); POTASSIUM - SERUM 4.2 mmol/L (3.5-5.1); PROTEIN - SERUM 4.9 g/dL (6.4-8.2)
[2016-09-04 05:45] LABS: BILIRUBIN - TOTAL 32.47 mg/dL (0.2-1.3)
--- NOTE | 2016-09-04 06:26 | NUR ---
RESTING QUIETLY IN BED
--- NOTE | 2016-09-04 07:14 | NUR ---
PT SITTING UP IN BED DENEIS NEEDS WILL CONT TO MONITOR
[2016-09-04 07:24] LABS: MAGNESIUM - SERUM 1.8 mg/dL (1.8-2.4); PHOSPHOROUS 3.7 mg/dL (2.5-4.9)
[2016-09-04 08:38] VITALS: BP 153/92
--- NOTE | 2016-09-04 10:45 | NUR ---
WENT OVER DC PAPERWORK WITH PT PT VERBALIZES UNDERSTANDING DC PIV WITH CATH TIP INTACT. DC TELE AND RETURNED TO PEST CONTROL PILOT. WAITING ON URINE SAMPLE THEN WILL CALL FOR WHEELCHAIR FOR PT TO BE DC HOME.
--- NOTE | 2016-09-04 11:43 | NUR ---
PT COLLECTED URINE SPECIMEN. PT SPOUSE WHEELED HER OUT
[2016-09-04 12:25] LABS: APPEARANCE CLEAR (CLEAR); BILIRUBIN 3+ (NEGATIVE); COLOR DK YELLOW (YELLOW); GLUCOSE NEGATIVE (NEGATIVE); KETONE NEGATIVE (NEGATIVE); LEUKOCYTE ESTERASE TRACE (NEGATIVE); NITRITE NEGATIVE (NEGATIVE); PROTEIN 2+ mg/dL (NEGATIVE); UROBILINOGEN NORMAL (NORMAL)
[2016-09-04 12:26] LABS: BACTERIA MODERATE /hpf (NONE SEEN); EPITHELIAL CELLS 0-5 /hpf (0-5); MUCUS <1+ /lpf (NONE SEEN); RED CELLS - URINE 0-5 /hpf (0-5); WHITE CELLS - URINE 0-5 /hpf (0-5); YEAST <1+ /hpf (NONE SEEN)
== END 2016-09-04 11:44 | disposition home or self-care (01) | DRG 432 ==
LOC: D.ER 22:10 → D.M2 08-18 03:23
PROVIDERS: Family Medicine; Internal Medicine Gastroenterology; Internal Medicine Nephrology; Radiology Diagnostic Radiology; ADMIT Family Medicine
PROC: 0FB13ZX Excision of Right Lobe Liver, Percutaneous Approach, Diagnostic (ICD-10-PCS; principal; 2016-08-22 08:05)
DX: K70.10 Alcoholic hepatitis without ascites (principal); K85.90 Acute pancreatitis without necrosis or infection, unspecified; N00.9 Acute nephritic syndrome with unspecified morphologic changes; K57.32 Diverticulitis of large intestine without perforation or abscess without bleeding; E87.1 Hypo-osmolality and hyponatremia; N39.0 Urinary tract infection, site not specified; N17.9 Acute kidney failure, unspecified; E87.6 Hypokalemia; K76.0 Fatty (change of) liver, not elsewhere classified; R19.00 Intra-abdominal and pelvic swelling, mass and lump, unspecified site; B96.20 Unspecified Escherichia coli [E. coli] as the cause of diseases classified elsewhere; I08.1 Rheumatic disorders of both mitral and tricuspid valves; K64.8 Other hemorrhoids; D69.6 Thrombocytopenia, unspecified; E83.42 Hypomagnesemia; D64.9 Anemia, unspecified